=== PATIENT | female | born 1975 ===

== ENCOUNTER 2016-04-26 15:03 | Emergency (ER) | payer OTHER, BC ==
[~2016-04-26] VITALS: Ht 167.6 cm; Wt 80.0 kg
[2016-04-26 15:03] VITALS: RESP 23
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
--- NOTE | 2016-04-26 15:11 | NUR ---
REVISED TRAUMA SCORE DONE ON PAPER TRAUMA CHART. CL
--- NOTE | 2016-04-26 15:32 | NUR ---
PT MANNIEB RETURNS TO PT RM AND ANGRILY TELLS PT "YOU KNOW HOW ANGRY I GET WHEN I HAVE TO DEAL WITH INCOMPETENT PEOPLE". REPLIES "I KNOW". CL
[2016-04-26 15:49] LABS: BASOPHILS % (AUTO) 1 % (0-2); EOSINOPHILS # (AUTO) 0.1 10^3uL; EOSINOPHILS % (AUTO) 1 % (0-4); LYMPHOCYTES # (AUTO) 0.9 X10^3; MEAN CORPUSCULAR HEMOGLOBIN 29.5 PG (26.0-34.0); MEAN CORPUSCULAR HGB CONC 35.2 g/dL (31.0-37.0); MEAN CORPUSCULAR VOLUME 84 FL (80-100); MEAN PLATELET VOLUME 11.4 FL (6.0-9.5); MONOCYTES # (AUTO) 0.3 X10^3; MONOCYTES % (AUTO) 5 % (3-11); NEUTROPHILS % (AUTO) 79 % (51-67); PLATELET COUNT 257 10^3uL (150-450); WHITE BLOOD COUNT 6.37 10^3uL (4.0-11.0)
[2016-04-26] MEDS ORDERED: LSNP10T (15:52)
[2016-04-26] MEDS ORDERED: CTLP20T (15:52)
[2016-04-26] MEDS ORDERED: ZLP5T PO (15:52)
--- NOTE | 2016-04-26 15:58 | NUR ---
HUSB OUT TO LOBBY & FATHER IN W/DAUGHTER TO VISIT AT BEDSIDE. CL
[2016-04-26 15:59] LABS: ALBUMIN 4.9 g/dL (3.4-5.0); ANION GAP 16.1 MEQ/L (3-15); CALCULATED IONIZED CALCIUM 3.8 mg/dL (3.8-4.6); TOTAL PROTEIN 8.5 g/dL (6.4-8.5)
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
--- NOTE | 2016-04-26 16:35 | NUR ---
WHEN RETURNING PT BACK TO BED, URETHRAL MEATUS CHECKED & NO BLOOD NOTED. DR COLLINS NOTIFIED. CL
--- NOTE | 2016-04-26 16:37 | NUR ---
COFFEE GIVEN TO PT SUSANNAH. CL
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
[2016-04-26] MEDS ORDERED: HYDR-3702 PO (17:50)
--- NOTE | 2016-04-26 17:50 | NUR ---
C COLLAR REMOVED BY DR DENNIS King/SUSANNAH PRESENT AT BEDSIDE. CL
[2016-04-26] MEDS ORDERED: ACETAMINOPHEN 500 MG TAB (TYLENOL) PO ONE (17:55)
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
--- NOTE | 2016-04-26 18:02 | NUR ---
ALFRED JUSTIN RN COMES TO ED. PT & PT SUSANNAH OFFERED TO TALK WITH HER EMMA ROSS. SUSANNAH DECLINES TO TALK TO HER AT THIS TIME. CL
--- NOTE | 2016-04-26 18:10 | NUR ---
THIS PTS ACCOUNT HAS BEEN MERGED TODAY WITH ACCOUNTS UNDER PREVIOUS NAME OF SCOTT VAUGHAN BY HIM SHE HAS BEEN REMARRIED. CL
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
[2016-04-26 19:05] VITALS: BP 133/80
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
== END 2016-04-26 18:14 | disposition home or self-care (01) ==
LOC: MERGE 15:06 → ED 15:06
DX: S40.012A Contusion of left shoulder, initial encounter (principal); S06.0X0A Concussion without loss of consciousness, initial encounter; V48.5XXA Car driver injured in noncollision transport accident in traffic accident, initial encounter
CPT/HCPCS: 36415; 70450; 72125; 73030; 80053; 83690; 84703; 85025; 99283; 99285